=== PATIENT | male | born 1975 | race Caucasian/White ===

== ENCOUNTER 2022-06-04 23:40 | Emergency (ER) | payer BC, MEDICAID ==
[2022-06-04] MEDS ORDERED: Sodium Chloride 0.9% 10 ML Syringe FLUSH PRN (23:43)
[2022-06-04] MEDS ORDERED: HYDROmorphone 0.5 MG/0.5 ML Syringe IVPUSH ONE (23:44)
[2022-06-05] MEDS ORDERED: HYDROmorphone 0.5 MG/0.5 ML Syringe IVPUSH ONE (00:12)
[2022-06-05 00:22] LABS: PTT,PARTIAL THROMBOPLSTIN TIME 24.8 SEC (23.6-29.8)
[2022-06-05 00:26] LABS: CHLORIDE,CL 102 mmol/L (98-107); SODIUM,NA 140 mmol/L (136-145)
[2022-06-05 00:28] LABS: ANION GAP 13.5 meq/L (7-15); ESTIMATED GFR 81 mL/min (>=60)
== END 2022-06-05 01:20 | disposition home or self-care (01) ==
LOC: LL.ED 23:40
DX: R07.89 Other chest pain (principal); I10 Essential (primary) hypertension; Z87.891 Personal history of nicotine dependence; Z91.013 Allergy to seafood; Z88.8 Allergy status to other drugs, medicaments and biological substances; Z79.899 Other long term (current) drug therapy
CPT/HCPCS: 36415; 71045; 80053; 83735; 83880; 84100; 84484; 85025; 85379; 85610; 85730; 86140; 93005; 93010; 96374; 96376; 99284; 99285-25; J1170